=== PATIENT | male | born 1950 | race Asian ===

== ENCOUNTER → 2017-09-14 15:39 | Outpatient (CLI) | payer OTHER | END | disposition home or self-care (01) | LOC: RAD 15:39 | DX: J44.9 Chronic obstructive pulmonary disease, unspecified (principal) ==

== ENCOUNTER 2019-10-17 15:25 | Outpatient (CLI) | payer OTHER | END 2019-10-17 19:32 | disposition home or self-care (01) | LOC: RAD 15:25 | DX: J44.9 Chronic obstructive pulmonary disease, unspecified (principal) ==